=== PATIENT | male | born 1990 | race American Indian/Alaskan Native ===

== ENCOUNTER 2022-03-04 14:39 | Emergency (ER) | payer OTHER ==
[2022-03-04] MEDS ORDERED: SODIUM CHLORIDE 0.9% 1000 ML 1,000 ML IV ONE (14:51)
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
[2022-03-04 15:25] LABS: Basophils % (Auto) 0.4 % (0.0-1.8); Eosinophils % (Auto) 0.3 % (0.0-4.3); Hematocrit 48.2 % (35.5-45.6); Hemoglobin 15.8 gm/dl (11.8-15.2); Lymphocytes # (Auto) 1.5 K/mm3 (1.2-5.4); Mean Corpuscular HGB Conc 33 % (32-34); Mean Corpuscular Volume 94 fl (84-94); Monocytes # (Auto) 0.7 K/mm3 (0.0-0.8); Monocytes % (Auto) 7.5 % (0.0-7.3); Platelet Count 208 K/mm3 (140-440); Red Blood Count 5.11 M/mm3 (3.65-5.03); Red Cell Distribution Width 13.2 % (13.2-15.2)
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
[2022-03-04 15:38] LABS: INR 0.99 (0.87-1.13)
[2022-03-04 15:43] LABS: Alanine Aminotransferase 17 units/L (7-56); BUN/Creatinine Ratio 9; Blood Urea Nitrogen 9 mg/dL (9-20); Hemolysis Index 8
[2022-03-04 18:16] LABS: Alanine Aminotransferase 16 units/L (7-56); Albumin 4.6 g/dL (3.9-5); BUN/Creatinine Ratio 10; Blood Urea Nitrogen 9 mg/dL (9-20); Calcium 9.2 mg/dL (8.4-10.2); Hemolysis Index 4
[2022-03-04 18:34] LABS: Mucus,Urine 2+ /HPF; RBC,Urine < 1.0 /HPF (0.0-6.0)
[2022-03-04 20:23] LABS: Amphetamine Screen,Urine Negative; Benzodiazepines Screen,Urine Negative; Cocaine Screen,Urine Negative; Methadone Screen,Urine Negative; Opiate Screen,Urine Negative
[2022-03-04 20:40] LABS: Cannabinoid Screen,Urine Positive
[2022-03-04 22:39] VITALS: BP 123/73
--- NOTE | 2022-03-05 13:12 | Electrocardiograph Report ---
[facility] Test Date: 2022-03-04 Test Time: 15:23:52 Pat Name: THONG JAFFE Department: Room: Gender: M News Director: 911 : 1990 Requested By: JEANNIE NO Order Number: [id number] Reading MD: Edna Rivas Measurements Intervals [place] Rate: 51 P: 35 ID: [id number] QRS: 61 QRSD: 82 T: 60 QT: 387 QTc: 356 Interpretive Statements Sinus bradycardia Nonspecific T abnormalities, anterior leads ST elev, probable normal early repol pattern No previous ECG available for comparison Electronically Signed On 03-05-2022 13:11:55 EDT by Edna Rivas
== END 2022-03-04 23:01 ==
LOC: ED 14:39
DX: T39.1X1A Poisoning by 4-Aminophenol derivatives, accidental (unintentional), initial encounter (principal); I10 Essential (primary) hypertension; R79.1 Abnormal coagulation profile; Z72.89 Other problems related to lifestyle; Z79.899 Other long term (current) drug therapy; Y92.89 Other specified places as the place of occurrence of the external cause
CPT/HCPCS: 36415; 71045; 80053; 80307; 81001; 84484; 85025; 85610; 93005; 96360; 99285; J7030; 80320; G0480